=== PATIENT | female | born 1955 | race Caucasian/White ===

== ENCOUNTER 2016-07-04 07:23 | Day surgery (SDC) | payer OTHER ==
[~2016-07-04 07:23] MED LIST: ceFAZolin 2 GM/50 ML 50 ML IV ONE
[2016-07-04] MEDS ORDERED: LACTATED RINGERS 1,000 ML IV ONE (07:46)
[2016-07-04] MEDS ORDERED: PROPOFOL 200 MG/20 ML VIAL IVP ONE (08:45)
[2016-07-04] MEDS ORDERED: LIDOCAINE-PF 2% 10 ML AMP SUBQ ONE (08:45)
[2016-07-04] MEDS ORDERED: MIDAZOLAM 2 MG/2 ML VIAL IVP ONE (08:45)
[2016-07-04] MEDS ORDERED: fentaNYL 100 MCG/2 ML VIAL IVP ONE (08:45)
[2016-07-04] MEDS ORDERED: DEXAMETHASONE 4 MG/ML VIAL IVP ONE (08:45)
[2016-07-04] MEDS ORDERED: ONDANSETRON 4 MG/2 ML VIAL IVP ONE (08:45)
== END 2016-07-04 07:24 | disposition home or self-care (01) ==
PROC: 0RQR0ZZ Repair Left Carpal Joint, Open Approach (ICD-10-PCS; principal; 2016-07-04 08:30)
PROC: 01N50ZZ Release Median Nerve, Open Approach (ICD-10-PCS; 2016-07-04 08:30)
DX: M18.11 Unilateral primary osteoarthritis of first carpometacarpal joint, right hand (principal); G56.02 Carpal tunnel syndrome, left upper limb; I10 Essential (primary) hypertension; E66.9 Obesity, unspecified; Z68.39 Body mass index [BMI] 39.0-39.9, adult
CPT/HCPCS: 25447; 26480; 64721; J0690; J7120

== ENCOUNTER 2016-07-26 | Outpatient (CLI) | payer OTHER | END 2016-07-26 11:43 | disposition critical access hospital (66) | CPT/HCPCS: A0425; A0427 ==

== ENCOUNTER 2016-07-26 11:57 | Inpatient (IN) | payer OTHER ==
[2016-07-26] MEDS ORDERED: HYDROmorphone 1 MG/ML SYRINGE IVP STA ×2 (12:58→14:14)
[2016-07-26] MEDS ORDERED: ONDANSETRON 4 MG/2 ML VIAL IVP STA (12:58)
[2016-07-26] MEDS ORDERED: SODIUM CHLORIDE 0.9% 1,000 ML IV ONE (12:58)
[2016-07-26] MEDS ORDERED: KETOROLAC 60 MG/2 ML VIAL IVP STA (12:58)
[2016-07-26] MEDS ORDERED: KETOROLAC 30 MG/ML VIAL ONE (13:23)
[2016-07-26] MEDS ORDERED: HYDROmorphone 1 MG/ML SYRINGE ONE ×2 (13:23→14:21)
[2016-07-26] MEDS ORDERED: ONDANSETRON 4 MG/2 ML VIAL ONE (13:23)
[2016-07-26] MEDS ORDERED: IOPAMIDOL-300 100 ML VIAL IVP ONE (14:06)
[2016-07-26] MEDS ORDERED: cefTRIAXone 1 GM in SODIUM CHLORIDE 0.9% MINIBAG 100 ML IV STA (14:56)
[2016-07-26] MEDS ORDERED: metroNIDAZOLE 500 MG/100 ML 100 ML IV ONE (14:56)
[2016-07-26] MEDS ORDERED: cefTRIAXone 1 GM VIAL ONE (15:01)
[2016-07-26] MEDS ORDERED: metroNIDAZOLE 500 MG/100 ML 100 ML ONE (15:01)
[2016-07-26] MEDS ORDERED: LACTATED RINGERS 1,000 ML IV ONE ×3 (17:38→19:41)
[2016-07-26] MEDS ORDERED: ROCURONIUM 50 MG/5 ML VIAL IVP ONE ×2 (17:40)
[2016-07-26] MEDS ORDERED: MIDAZOLAM 2 MG/2 ML VIAL IVP ONE ×2 (17:40)
[2016-07-26] MEDS ORDERED: DEXAMETHASONE 4 MG/ML VIAL IVP ONE ×2 (17:40)
[2016-07-26] MEDS ORDERED: PROPOFOL 200 MG/20 ML VIAL IVP ONE ×2 (17:40)
[2016-07-26] MEDS ORDERED: ACETAMINOPHEN 1,000 MG/100 ML VIAL IV ONE ×2 (17:40)
[2016-07-26] MEDS ORDERED: PHENYLEPHRINE 10 MG/ML VIAL IV ONE ×2 (17:40)
[2016-07-26] MEDS ORDERED: LIDOCAINE-MPF 2% 5 ML VIAL IM ONE ×2 (17:40)
[2016-07-26] MEDS ORDERED: fentaNYL 100 MCG/2 ML VIAL IVP ONE ×2 (17:40)
[2016-07-26] MEDS ORDERED: ONDANSETRON 4 MG/2 ML VIAL IVP ONE ×2 (17:40)
[2016-07-26] MEDS ORDERED: SUCCINYLCHOLINE 200 MG/10 ML VIAL IVP ONE ×2 (17:40)
[2016-07-26] MEDS ORDERED: PIPERACILLIN/TAZOBACTAM 3.375 GM in SODIUM CHLORIDE 0.9% MINIBAG 100 ML IV ONE (18:00)
[2016-07-26] MEDS ORDERED: BUPIVACAINE 0.25% PF 30 ML VIAL SUBQ ONE (18:17)
[2016-07-26] MEDS ORDERED: PROMETHAZINE 25 MG TABLET PO PRN (18:59)
[2016-07-26] MEDS ORDERED: ONDANSETRON 4 MG/2 ML VIAL IVP PRN (18:59)
[2016-07-26] MEDS ORDERED: LACTATED RINGERS 1,000 ML IV SCH (19:00)
[2016-07-26] MEDS: ACETAMINOPHEN 500 MG TABLET PO SCH (21:00)
[2016-07-26] MEDS: KETOROLAC 30 MG/ML VIAL IVP SCH (21:00)
[2016-07-26] MEDS: SIMETHICONE CHEW 80 MG TABLET PO SCH (21:33)
[2016-07-26] MEDS: DOCUSATE SODIUM 100 MG CAPSULE PO SCH (21:33)
[2016-07-26] MEDS: LACTATED RINGERS 1,000 ML IV SCH (22:20)
[2016-07-26] MEDS ORDERED: SODIUM CHLORIDE FLUSH 0.9% 10 ML SYRINGE IVP ONE (22:21)
[2016-07-26] MEDS ORDERED: FUROSEMIDE 20 MG/2 ML VIAL IVP SCH (23:00)
[2016-07-27] MEDS: KETOROLAC 30 MG/ML VIAL IVP SCH ×4 (00:40→19:59)
[2016-07-27] MEDS: ACETAMINOPHEN 500 MG TABLET PO SCH ×3 (04:14→20:00)
[2016-07-27] MEDS: SIMETHICONE CHEW 80 MG TABLET PO SCH ×3 (07:05→21:31)
[2016-07-27] MEDS: LACTATED RINGERS 1,000 ML IV SCH (09:32)
[2016-07-27] MEDS: FUROSEMIDE 20 MG/2 ML VIAL IVP SCH (09:33)
[2016-07-27] MEDS: DOCUSATE SODIUM 100 MG CAPSULE PO SCH ×2 (09:37→21:31)
[2016-07-27] MEDS ORDERED: SODIUM CHLORIDE FLUSH 0.9% 10 ML SYRINGE IVP ONE ×2 (18:29→19:27)
[2016-07-28] MEDS: KETOROLAC 30 MG/ML VIAL IVP SCH ×3 (00:18→13:28)
[2016-07-28] MEDS: ACETAMINOPHEN 500 MG TABLET PO SCH ×2 (03:45→11:30)
[2016-07-28] MEDS: SIMETHICONE CHEW 80 MG TABLET PO SCH ×2 (06:51→15:30)
[2016-07-28] MEDS: DOCUSATE SODIUM 100 MG CAPSULE PO SCH (09:23)
[2016-07-28] MEDS: FUROSEMIDE 20 MG/2 ML VIAL IVP SCH (09:23)
[2016-07-28] MEDS ORDERED: MAG HYDROX/AL HYDROX/SIMETH 30 ML UDC PO PRN (11:35)
== END 2016-07-28 18:50 | disposition home or self-care (01) | DRG 742 ==
PROC: 0UT20ZZ Resection of Bilateral Ovaries, Open Approach (ICD-10-PCS; 2016-07-26)
PROC: 0UT70ZZ Resection of Bilateral Fallopian Tubes, Open Approach (ICD-10-PCS; principal; 2016-07-26 17:01)
DX: N83.512 Torsion of left ovary and ovarian pedicle (principal); K57.32 Diverticulitis of large intestine without perforation or abscess without bleeding; N83.202 Unspecified ovarian cyst, left side; N83.201 Unspecified ovarian cyst, right side; Z82.49 Family history of ischemic heart disease and other diseases of the circulatory system; R07.89 Other chest pain; E66.9 Obesity, unspecified; M19.90 Unspecified osteoarthritis, unspecified site; G89.29 Other chronic pain; M54.5 Low back pain

== ENCOUNTER 2016-08-15 15:48 | Outpatient (CLI) | payer OTHER | END 2016-08-15 15:49 | disposition home or self-care (01) | DX: Z48.89 Encounter for other specified surgical aftercare (principal); M19.042 Primary osteoarthritis, left hand ==

== ENCOUNTER 2017-09-11 10:56 | Day surgery (SDC) | payer OTHER ==
[~2017-09-11 10:56] MED LIST changes: +ceFAZolin 2 GM/50 ML 2 GM/50 ML BAG IV ONE; -ceFAZolin 2 GM/50 ML 50 ML IV ONE
[2017-09-11] MEDS ORDERED: LACTATED RINGERS 1,000 ML IV ONE (11:15)
[2017-09-11] MEDS ORDERED: BUPIVACAINE 0.25% PF 30 ML VIAL ONE (13:35)
[2017-09-11] MEDS ORDERED: BUPIVACAINE 0.25% PF 30 ML VIAL SUBQ ONE (14:25)
[2017-09-11] MEDS ORDERED: MIDAZOLAM 2 MG/2 ML VIAL IVP ONE (15:11)
[2017-09-11] MEDS ORDERED: PROPOFOL 200 MG/20 ML VIAL IVP ONE (15:11)
[2017-09-11] MEDS ORDERED: fentaNYL 100 MCG/2 ML VIAL IVP ONE (15:11)
[2017-09-11] MEDS ORDERED: ACETAMINOPHEN 1,000 MG/100 ML 100 ML IV ONE (15:44)
[2017-09-11 16:50] VITALS: BP 138/86
--- NOTE | 2017-09-11 20:51 | OPERATIVE REPORT ---
DATE OF SERVICE: 09/11/2017 Physician: He Mon MD PREOPERATIVE DIAGNOSES 1. Right wrist first carpometacarpal arthritis. 2. Right carpal tunnel syndrome. POSTOPERATIVE DIAGNOSES 1. Right wrist first carpometacarpal arthritis. 2. Right carpal tunnel syndrome. NAME OF PROCEDURE 1. Right wrist carpal tunnel release. 2. Right first carpometacarpal joint arthroplasty. OPERATING SURGEON: He Mon MD ANESTHESIA: General. INDICATIONS FOR PROCEDURE: This is a 61-year-old female with progressive right first carpometacarpal arthritis and associated carpal tunnel syndrome of her hand. She desires combined surgery and has failed nonoperative treatment. FINDINGS AT SURGERY: The patient's carpometacarpal joint was severely arthritic and there were small loose bodies in that joint. The patient's carpal tunnel area was unremarkable with a tight transverse carpal ligament. OPERATIVE PROCEDURE: The patient was taken to the operating room and given a general anesthetic. The patient had had a preoperative right axillary nerve block. A tourniquet was placed on the arm and the arm and forearm sterilely prepped and draped in standard fashion. After surgical timeout, the initial procedure was the carpal tunnel release. Utilizing tourniquet control of 250 mmHg, a midline incision was made in the palm in line with the third webspace, measuring 1-1/2 inches in length. This incision was deepened through skin and a careful dissection made down to the transverse carpal ligament, which was divided in line with the incision. The release was carried to the distal extent at the superficial arch of the palm and taken proximal to the wrist flexion crease. Once adequately decompressed, the area was irrigated and skin closed with 3-0 nylon interrupted. The attention was then directed to the base of the thumb where a curved incision was made over the base of the thumb, taken through skin and subcutaneous tissue, and dissecting down to the first extensor compartment and to the tissues adjacent to the dorsal thumb. The extensor tendons and the first compartment were retracted volarly, and further dissection was taken directly down to the base of the first metacarpal. A capsulotomy was performed of the carpometacarpal joint, reflecting tissue off the trapezial bone and the base of the first metacarpal. The trapezium was sectioned and removed in 4 pieces, and small bits of bone were flushed out and irrigated. A drill hole was made in the base of the first metacarpal to exit the base of that bone for receiving a tendon graft as a ligament reconstruction. The thumb was positioned appropriately with some distraction and a K-wire driven into the carpus to hold it. The flexor carpi radialis distal tendon was divided and whipstitched and drawn up into the drill hole and sutured into place. The capsule was then closed after tourniquet deflation and bleeding control and then the subcutaneous tissues closed with Vicryl. The pin was bent and cut, and a Jurgan ball was placed on the end of the pin and the patient's wounds infiltrated with Marcaine again. Sterile dressings were applied to each of the wounds and the patient was fitted in a thumb spica splint. She was taken to the recovery room in stable condition. ESTIMATED BLOOD LOSS FOR THE PROCEDURE: Minimal. COMPLICATIONS: None. SPONGE AND NEEDLE COUNTS: Correct. TD: 09/11/2017 20:50
== END 2017-09-11 10:57 | disposition home or self-care (01) ==
LOC: SDS 10:56
PROVIDERS: ATTEND Orthopaedic Surgery
PROC: 0RQS0ZZ Repair Right Carpometacarpal Joint, Open Approach (ICD-10-PCS; 2017-09-11)
PROC: 01N50ZZ Release Median Nerve, Open Approach (ICD-10-PCS; principal; 2017-09-11 12:45)
DX: M18.11 Unilateral primary osteoarthritis of first carpometacarpal joint, right hand (principal); G56.01 Carpal tunnel syndrome, right upper limb; I10 Essential (primary) hypertension; E78.00 Pure hypercholesterolemia, unspecified
CPT/HCPCS: 25447; 26480; 64721; J0131; J0690; J7120

== ENCOUNTER 2018-01-11 07:10 | Outpatient (CLI) | payer OTHER ==
[2018-01-11 12:35] LABS: BASOPHILS # (AUTO) 0.1 10^3/uL (0.0-0.1); EOSINOPHILS # (AUTO) 0.3 10^3/uL (0.0-0.7); EOSINOPHILS % (AUTO) 3.6 %; HGB - HEMOGLOBIN 15.7 g/dL (12.0-16.0); LYMPHOCYTES # (AUTO) 3.5 10^3/uL (1.5-3.5); LYMPHOCYTES % (AUTO) 45.5 %; MEAN CORPUSCULAR HEMOGLOBIN 32.5 pg (27.0-31.0); MEAN CORPUSCULAR VOLUME 95.6 fL (81.0-99.0); MEAN PLATELET VOLUME 7.8 fL (7.9-10.8); MONOCYTES # (AUTO) 0.7 10^3/uL (0.0-1.0); MONOCYTES % (AUTO) 9.5 %; NEUTROPHILS # (AUTO) 3.1 10^3/uL (1.5-6.6); NEUTROPHILS % (AUTO) 40.4 %; PLT - PLATELET COUNT 200 10^3/uL (130-450); RED BLOOD COUNT 4.84 10^6/uL (4.20-5.40); RED CELL DISTRIBUTION WIDTH 13.2 % (12.0-15.0); WHITE BLOOD COUNT 7.7 x10^3/uL (4.8-10.8)
[2018-01-11 13:00] LABS: HB2 TOTAL 16.8 g/dL; HEMOGLOBIN A1C 0.72 g/dL; HEMOGLOBIN A1C % 6.1 % (4.6-6.2)
[2018-01-11 13:28] LABS: ALBUMIN/GLOBULIN RATIO 1.3 (1.0-2.2); ALKALINE PHOSPHATASE 68 IU/L (42-121); ALT ALANINE AMINOTRANSFERASE 95 IU/L (10-60); AST ASPARTATE AMINOTRANSFERASE 60 IU/L (10-42); BILIRUBIN,TOTAL 0.7 mg/dL (0.2-1.0); BUN - BLOOD UREA NITROGEN 11 mg/dL (6-20); CALCIUM 9.9 mg/dL (8.5-10.3); CARBON DIOXIDE - CO2 28 mmol/L (21-32); CHLORIDE 103 mmol/L (101-111); CHOL/HDL RATIO 5.2 (<4.4); CHOLESTEROL 209 mg/dL; CREATININE 0.7 mg/dL (0.4-1.0); GFR - MDRD 85 (>89); GLUCOSE 123 mg/dL (70-100); HDL CHOLESTEROL 40 mg/dL; LDL CHOLESTEROL,CALCULATED 132 mg/dL; LDL/HDL RATIO 3.3 (<4.4); SODIUM 138 mmol/L (135-145); TOTAL PROTEIN 7.1 g/dL (6.7-8.2); VLDL CHOLESTEROL 37 mg/dL
== END 2018-01-11 07:11 | disposition home or self-care (01) ==
LOC: LAB.WCP 07:10
PROVIDERS: ATTEND Family Medicine
DX: Z00.00 Encounter for general adult medical examination without abnormal findings (principal); I10 Essential (primary) hypertension; R73.9 Hyperglycemia, unspecified
CPT/HCPCS: 36415; 80053; 80061; 83036; 83721; 84443; 85025

== ENCOUNTER 2018-01-16 10:56 | Emergency (ER) | payer OTHER ==
[2018-01-16 11:24] LABS: BASOPHILS # (AUTO) 0.1 10^3/uL (0.0-0.1); EOSINOPHILS # (AUTO) 0.3 10^3/uL (0.0-0.7); EOSINOPHILS % (AUTO) 3.1 %; HGB - HEMOGLOBIN 16.7 g/dL (12.0-16.0); LYMPHOCYTES # (AUTO) 4.5 10^3/uL (1.5-3.5); LYMPHOCYTES % (AUTO) 47.4 %; MEAN CORPUSCULAR HEMOGLOBIN 32.7 pg (27.0-31.0); MEAN CORPUSCULAR HGB CONC 34.8 g/dL (32.0-36.0); MEAN CORPUSCULAR VOLUME 93.9 fL (81.0-99.0); MEAN PLATELET VOLUME 7.3 fL (7.9-10.8); MONOCYTES % (AUTO) 10.7 %; NEUTROPHILS # (AUTO) 3.6 10^3/uL (1.5-6.6); NEUTROPHILS % (AUTO) 37.8 %; PLT - PLATELET COUNT 197 10^3/uL (130-450); RED CELL DISTRIBUTION WIDTH 12.7 % (12.0-15.0); WHITE BLOOD COUNT 9.4 x10^3/uL (4.8-10.8)
[2018-01-16 11:43] LABS: ALBUMIN 4.3 g/dL (3.2-5.5); ALBUMIN/GLOBULIN RATIO 1.3 (1.0-2.2); BILIRUBIN,TOTAL 0.9 mg/dL (0.2-1.0); CALCIUM 10.7 mg/dL (8.5-10.3); CREATININE 0.7 mg/dL (0.4-1.0); TOTAL PROTEIN 7.5 g/dL (6.7-8.2)
--- NOTE | 2018-01-16 12:23 | XRAY Report ---
Procedure Date: 01/16/2018 Accession Number: [id number] / [id number] Procedure: XR - Chest 2 View X-Ray CPT Code: 79011 FULL RESULT: EXAM: CHEST RADIOGRAPHY EXAM DATE: 01/16/2018 11:43 AM. CLINICAL HISTORY: Chest pain, soa. COMPARISON: 07/28/2016 TECHNIQUE: 2 views. FINDINGS: Lungs/Pleura: No focal opacities evident. No pleural effusion. No pneumothorax. Normal volumes. Mediastinum: Heart and mediastinal contours are unremarkable. Other: Negative bony structures. IMPRESSION: Negative 2-view chest radiography. RADIA
--- NOTE | 2018-01-16 13:18 | ED Physician Documentation ---
PD HPI CHEST PAIN - Stated complaint Stated Complaint: SOA/ANXIETY/CHEST PX - Chief complaint Chief Complaint: Cardiac - History obtained from History obtained from: Patient - History of Present Illness Timing - onset: How many days ago (few) Timing - onset during: Light activity Timing - duration: Days (few) Timing - details: Gradual onset, Still present, Waxing and waning Quality: Pressure, Tightness. No: Aching, Sharp Location: Substernal, Left chest Radiation: No: Jaw, Neck Improved by: Rest Associated symptoms: Shortness of air. No: Nausea, Vomiting, Feeling faint / dizzy, Palpitations Similar symptoms before: Has not had sx before Recently seen: Not recently seen Review of Systems Constitutional: denies: Fever, Chills Nose: reports: Congestion. denies: Rhinorrhea / runny nose Throat: denies: Sore throat Cardiac: reports: Chest pain / pressure. denies: Palpitations Respiratory: reports: Dyspnea, Wheezing GI: denies: Abdominal Pain, Nausea, Vomiting : denies: Dysuria, Frequency, Discharge Skin: denies: Rash PD PAST MEDICAL HISTORY - Past Medical History Past Medical History: Yes Cardiovascular: Hypertension, High cholesterol Respiratory: Shortness of breath, Sleep apnea Endocrine/Autoimmune: None GI: Hiatal hernia : Frequency HEENT: Chronic vision loss, Chronic sinusitis Psych: Depression, Anxiety Musculoskeletal: Osteoarthritis, Chronic back pain Derm: Psoriasis - Past Surgical History General: Colonoscopy, Other Ortho: Carpal Tunnel surgery /[employer]: Tubal ligation, Oophrectomy - Present Medications Home Medications: Ambulatory Orders Medication Instructions Recorded Confirmed Adalimumab [Humira] 10 mg SQ ONCE 09/10/17 09/10/17 Lisinopril/Hydrochlorothiazide 1 each PO DAILY 09/10/17 09/11/17 [Lisinopril-Hctz 10-12.5 mg Tab] Albuterol Sulf [Ventolin Hfa 2 - 3 puffs INH Q4HR PRN #1 inhaler 01/16/18 Inhaler] Dexamethasone [Decadron] 4 mg PO DAILY #5 tablet 01/16/18 - Allergies Allergies/Adverse Reactions: Allergies Allergy/AdvReac Type Severity Reaction Status Date / Time No Known Drug Allergies Allergy Verified 01/16/18 11:07 - Social History Does the pt smoke?: No Smoking Status: Never smoker Does the pt drink ETOH?: No Does the pt have substance abuse?: No - Immunizations Immunizations are current?: Yes PD ED PE NORMAL - Vitals Vital signs reviewed: Yes - General General: Alert and oriented X 3, No acute distress, Well developed/nourished - HEENT HEENT: Ears normal, Pharynx benign - Neck Neck: Supple, no meningeal sign, No adenopathy - Cardiac Cardiac: RRR, No murmur - Respiratory Respiratory: No: Clear bilaterally (expiratory wheezes diffusely. ) - Abdomen Abdomen: Normal bowel sounds, Soft, Non tender, Non distended - Back Back: No CVA TTP - Extremities Extremities: No deformity - Neuro Neuro: Alert and oriented X 3, No motor deficit, Normal speech - Psych Psych: Normal mood, Normal affect Results - Vitals Vitals: Vital Signs - 24 hr 01/16/18 01/16/18 01/16/18 11:05 13:25 13:55 Temperature 36.8 C Heart Rate 76 75 76 Respiratory 16 14 12 Rate Blood Pressure 138/94 H O2 Saturation 99 97 01/16/18 14:05 Temperature Heart Rate 79 Respiratory 13 Rate Blood Pressure 131/89 H O2 Saturation 97 Oxygen O2 Source Room air - EKG (time done) 11:09 Rate: Rate (enter#) (78) Rhythm: NSR [place]: Normal Intervals: Normal MI QRS: Normal Ischemia: Normal ST segments. No: ST elevation c/w ischemia, ST depression, T wave inversion (but does have t wave flattening. ) - Labs Labs: Laboratory Tests 01/16/18 01/16/18 01/16/18 11:18 11:18 11:18 WBC 9.4 RBC 5.10 Hgb 16.7 H Hct 47.9 H MCV 93.9 MCH 32.7 H MCHC 34.8 RDW 12.7 Plt Count 197 MPV 7.3 L Neut # (Auto) 3.6 Lymph # (Auto) 4.5 H [place] # (Auto) 1.0 Eos # (Auto) 0.3 Baso # (Auto) 0.1 Absolute Nucleated RBC 0.00 Nucleated RBC % 0.0 Sodium 138 Potassium 3.8 Chloride 102 Carbon Dioxide 28 Anion Gap 8.0 BUN 15 Creatinine 0.7 Estimated GFR (MDRD) 85 L Glucose 98 Calcium 10.7 H Magnesium Total Bilirubin 0.9 AST 87 H ALT 127 H Alkaline Phosphatase 82 Troponin I < 0.04 B-Natriuretic Peptide Total Protein 7.5 Albumin 4.3 Globulin 3.2 Albumin/Globulin Ratio 1.3 Lipase 33 01/16/18 01/16/18 11:18 11:18 WBC RBC Hgb Hct MCV MCH MCHC RDW Plt Count MPV Neut # (Auto) Lymph # (Auto) [place] # (Auto) Eos # (Auto) Baso # (Auto) Absolute Nucleated RBC Nucleated RBC % Sodium Potassium Chloride Carbon Dioxide Anion Gap BUN Creatinine Estimated GFR (MDRD) Glucose Calcium Magnesium 2.0 Total Bilirubin AST ALT Alkaline Phosphatase Troponin I B-Natriuretic Peptide 16 Total Protein Albumin Globulin Albumin/Globulin Ratio Lipase - Rads (name of study) chest Radiology: Prelim report reviewed (no acute process) PD MEDICAL DECISION MAKING - ED course Complexity details: reviewed results, re-evaluated patient (feels much much better with albuterol neb treatment. ), considered differential, d/w patient - Sepsis Event Vital Signs: Vital Signs - 24 hr 01/16/18 01/16/18 01/16/18 11:05 13:25 13:55 Temperature 36.8 C Heart Rate 76 75 76 Respiratory 16 14 12 Rate Blood Pressure 138/94 H O2 Saturation 99 97 01/16/18 14:05 Temperature Heart Rate 79 Respiratory 13 Rate Blood Pressure 131/89 H O2 Saturation 97 Oxygen O2 Source Room air Departure - Departure Disposition: 01 Home, Self Care Clinical Impression: Dyspnea Qualifiers: Dyspnea type: shortness of breath Qualified Code(s): R06.02 - Shortness of breath Reactive airway disease with wheezing Qualifiers: Asthma severity: mild Asthma persistence: intermittent Asthma complication type : with acute exacerbation Qualified Code(s): J45.21 - Mild intermittent asthma with (acute) exacerbation Condition: Stable Record reviewed to determine appropriate education?: Yes Instructions: ED Dyspnea Shortness of Breath Follow-Up: Mariana Burkett MD [Primary Care Provider] - Prescriptions: Albuterol Sulf [Ventolin Hfa Inhaler] 2 - 3 puffs INH Q4HR PRN #1 inhaler PRN Reason: Shortness Of Air/Wheezing Dexamethasone [Decadron] 4 mg PO DAILY #5 tablet Comments: Continue usual medications. Your chest x-ray and cardiogram and blood tests look normal so no signs of pneumonia, heart attack, or heart failure, collapsed lung. He did have improvement with the nebulizer so 1 presumes that some reactive airways related to environment most likely. Use the inhaler albuterol 2-3 puffs 4 times a day and extra times if needed for the next 7-10 days. Decadron steroid for bronchial inflammation daily for the next 5 days. Follow- up with your primary care in the next several days to week for recheck, call for an appointment. Discharge Date/Time: 01/16/18 14:39
[2018-01-16] MEDS ORDERED: DEXAMETHASONE 10 MG/ML VIAL PO STA (13:35)
[2018-01-16] MEDS ORDERED: ALBUTEROL NEB 2.5 MG/3 ML INH STA (13:35)
[2018-01-16 14:06] VITALS: BP 131/89
== END 2018-01-16 14:39 | disposition home or self-care (01) ==
LOC: ED 10:56
DX: J45.21 Mild intermittent asthma with (acute) exacerbation (principal)
CPT/HCPCS: 36415; 71046; 80053; 83690; 83735; 83880; 84484; 85025; 93005; 94640; 99283; 99284

== ENCOUNTER 2018-02-04 15:14 | Outpatient (CLI) | payer OTHER ==
--- NOTE | 2018-02-19 10:24 | Mammography Report ---
Reason: SCREENING MAMMO Procedure Date: 02/04/2018 Accession Number: [id number] / [id number] Procedure: JONATHAN - Screening Mammo Dig Bilat CPT Code: FULL RESULT: EXAM: Screening Mammo Dig Bilat DATE: 02/04/2018 3:33 PM CLINICAL HISTORY: 62-year-old female presents for screening mammogram. TECHNIQUE: Bilateral CC and MLO views were obtained. COMPARISON: No comparison studies are available to the radiologist for interpretation as supplied outside comparison images could not be loaded into the viewing software. FINDINGS: The breasts demonstrate scattered fibroglandular densities bilaterally. Coarse typically benign calcifications are seen in the right breast. No suspicious masses, clustered microcalcifications, or regions of architectural distortion are identified. IMPRESSION: Benign findings RECOMMENDATION: Routine annual screening unless otherwise clinically indicated. BIRADS CATEGORY 2: Benign findings STANDARD QUALIFYING STATEMENTS: 1. This examination was not reviewed with the aid of Computer-Aided Detection (CAD). 2. A negative or benign imaging report should not delay biopsy if clinically suspicious findings are present. Consider surgical consultation if warrented. More than 5% of cancers are not identified by imaging. 3. Dense breasts may obscure an underlying neoplasm.
== END 2018-02-04 15:15 | disposition home or self-care (01) ==
LOC: DI 15:14
PROVIDERS: ATTEND Radiology Diagnostic Radiology
DX: Z12.31 Encounter for screening mammogram for malignant neoplasm of breast (principal)
CPT/HCPCS: 77067

== ENCOUNTER 2018-02-14 13:03 | Outpatient (CLI) | payer OTHER | END 2018-02-14 13:04 | disposition home or self-care (01) | LOC: SC 13:03 | PROVIDERS: ATTEND Internal Medicine Pulmonary Disease | DX: G47.30 Sleep apnea, unspecified (principal); G47.10 Hypersomnia, unspecified; R06.83 Snoring; G47.8 Other sleep disorders | CPT/HCPCS: 99203; 99212 ==

== ENCOUNTER 2018-03-27 20:37 | Outpatient (CLI) | payer OTHER | END 2018-03-27 20:38 | disposition home or self-care (01) | LOC: SC 20:37 | PROVIDERS: ATTEND Internal Medicine Pulmonary Disease | DX: G47.33 Obstructive sleep apnea (adult) (pediatric) (principal); R09.02 Hypoxemia | CPT/HCPCS: 95810 ==

== ENCOUNTER 2018-04-24 14:20 | Outpatient (CLI) | payer OTHER | END 2018-04-24 14:21 | disposition home or self-care (01) | LOC: SC 14:20 | PROVIDERS: ATTEND Nurse Practitioner Family | DX: G47.33 Obstructive sleep apnea (adult) (pediatric) (principal); R09.02 Hypoxemia | CPT/HCPCS: 99212; 99214 ==

== ENCOUNTER 2018-06-03 16:17 | Outpatient (CLI) | payer OTHER | END 2018-06-03 16:18 | disposition home or self-care (01) | LOC: SC 16:17 | PROVIDERS: ATTEND Nurse Practitioner Family | DX: G47.33 Obstructive sleep apnea (adult) (pediatric) (principal) | CPT/HCPCS: 99212; 99214 ==

== ENCOUNTER 2018-09-02 16:13 | Outpatient (CLI) | payer OTHER | END 2018-09-02 16:14 | disposition home or self-care (01) | LOC: SC 16:13 | PROVIDERS: ATTEND Nurse Practitioner Family | DX: G47.33 Obstructive sleep apnea (adult) (pediatric) (principal) | CPT/HCPCS: 99212; 99214 ==

== ENCOUNTER 2018-09-18 08:49 | Outpatient (CLI) | payer OTHER ==
[2018-09-18 15:48] LABS: ALBUMIN 3.9 g/dL (3.2-5.5); ALBUMIN/GLOBULIN RATIO 1.1 (1.0-2.2); BILIRUBIN,TOTAL 0.8 mg/dL (0.2-1.0); CALCIUM 10.2 mg/dL (8.5-10.3); CREATININE 0.7 mg/dL (0.4-1.0); TOTAL PROTEIN 7.4 g/dL (6.7-8.2)
== END 2018-09-18 08:50 | disposition home or self-care (01) ==
LOC: LAB.WCP 08:49
PROVIDERS: ATTEND Family Medicine
DX: R74.8 Abnormal levels of other serum enzymes (principal)
CPT/HCPCS: 36415; 80053

== ENCOUNTER 2018-10-10 07:25 | Outpatient (CLI) | payer OTHER ==
--- NOTE | 2018-10-10 13:12 | Ultrasound Report ---
Reason: ELEVATED LIVER ENZYMES Procedure Date: 10/10/2018 Accession Number: [id number] / [id number] Procedure: US - Abdomen Complete CPT Code: FULL RESULT: EXAM: ABDOMEN ULTRASOUND EXAM DATE: 10/10/2018 08:18 AM. CLINICAL HISTORY: Elevated liver enzymes. COMPARISON: ABDOMEN/PELVIS W/ 07/26/2016 1:57 PM. TECHNIQUE: Real-time scanning was performed with static images obtained. FINDINGS: Liver: Liver is upper normal in size. Evaluation of the liver parenchyma is moderately limited due to poor beam penetration. 17 cm. Main portal vein flow: Hepatopetal. Gallbladder: There is a 1 cm mobile stone and dependent nonshadowing sludge. No wall thickening, pericholecystic fluid or tenderness to imaging. Biliary System: Common bile duct measures 3 mm. No intrahepatic or extrahepatic ductal dilatation. Pancreas: Visualized portion is unremarkable. Kidneys: Right: 10.7 cm longitudinally. Limited fine detail. No contour-deforming mass, stones, or hydronephrosis. Left: 11.3 cm longitudinally. Normal. No contour-deforming mass, stones, or hydronephrosis. Spleen: 11 cm. Normal in size and echotexture. Aorta and Inferior Vena Cava: Proximal aorta is obscured. Mid and distal aorta are normal in caliber. IVC appears normal. Other: None. IMPRESSION: 1. Technically limited exam, particularly regarding evaluation of liver parenchyma. 2. Cholelithiasis without other supportive evidence of cholecystitis. [facility]
== END 2018-10-10 07:26 | disposition home or self-care (01) ==
LOC: DI 07:25
PROVIDERS: ATTEND Family Medicine
DX: K80.20 Calculus of gallbladder without cholecystitis without obstruction (principal)
CPT/HCPCS: 76700

== ENCOUNTER 2019-01-02 08:00 | Outpatient (CLI) | payer OTHER ==
[2019-01-02 12:27] LABS: BASOPHILS # (AUTO) 0.1 10^3/uL (0.0-0.1); EOSINOPHILS # (AUTO) 0.4 10^3/uL (0.0-0.7); EOSINOPHILS % (AUTO) 4.8 %; HGB - HEMOGLOBIN 16.8 g/dL (12.0-16.0); LYMPHOCYTES # (AUTO) 2.9 10^3/uL (1.5-3.5); LYMPHOCYTES % (AUTO) 34.9 %; MEAN CORPUSCULAR HEMOGLOBIN 31.8 pg (27.0-31.0); MEAN CORPUSCULAR HGB CONC 32.5 g/dL (32.0-36.0); MEAN CORPUSCULAR VOLUME 97.7 fL (81.0-99.0); MONOCYTES # (AUTO) 0.7 10^3/uL (0.0-1.0); MONOCYTES % (AUTO) 8.4 %; NEUTROPHILS # (AUTO) 4.2 10^3/uL (1.5-6.6); NEUTROPHILS % (AUTO) 50.4 %; PLT - PLATELET COUNT 226 10^3/uL (130-450); RED BLOOD COUNT 5.29 10^6/uL (4.20-5.40); RED CELL DISTRIBUTION WIDTH 13.2 % (12.0-15.0); WHITE BLOOD COUNT 8.3 x10^3/uL (4.8-10.8)
[2019-01-02 12:54] LABS: ALBUMIN 4.1 g/dL (3.2-5.5); ALBUMIN/GLOBULIN RATIO 1.1 (1.0-2.2); ALKALINE PHOSPHATASE 79 IU/L (42-121); ALT ALANINE AMINOTRANSFERASE 84 IU/L (10-60); AST ASPARTATE AMINOTRANSFERASE 67 IU/L (10-42); BILIRUBIN,TOTAL 0.7 mg/dL (0.2-1.0); BUN - BLOOD UREA NITROGEN 13 mg/dL (6-20); CALCIUM 10.3 mg/dL (8.5-10.3); CARBON DIOXIDE - CO2 28 mmol/L (21-32); CHLORIDE 103 mmol/L (101-111); CHOL/HDL RATIO 5.7 (<4.4); CHOLESTEROL 226 mg/dL; CREATININE 0.7 mg/dL (0.4-1.0); GFR - MDRD 85 (>89); GLUCOSE 117 mg/dL (70-100); HDL CHOLESTEROL 40 mg/dL; LDL CHOLESTEROL,CALCULATED 150 mg/dL; LDL/HDL RATIO 3.8 (<4.4); SODIUM 141 mmol/L (135-145); VLDL CHOLESTEROL 36 mg/dL
[2019-01-02 13:05] LABS: HB2 TOTAL 17.7 g/dL; HEMOGLOBIN A1C 0.75 g/dL
== END 2019-01-02 23:59 | disposition home or self-care (01) ==
LOC: LAB.WCP 08:00
PROVIDERS: ATTEND Family Medicine
DX: Z00.00 Encounter for general adult medical examination without abnormal findings (principal); E78.5 Hyperlipidemia, unspecified; I10 Essential (primary) hypertension; R73.9 Hyperglycemia, unspecified; F32.9 Major depressive disorder, single episode, unspecified
CPT/HCPCS: 36415; 80053; 80061; 83036; 83721; 84443; 85025

== ENCOUNTER 2019-06-10 09:35 | Outpatient (CLI) | payer MEDICAID ==
--- NOTE | 2019-06-11 09:04 | Mammography Report ---
Reason: ROUTINE MAMMO Procedure Date: 06/10/2019 Accession Number: [id number] / [id number] Procedure: MGN - Screening Mammo Dig Bilat CPT Code: Final Report FULL RESULT: EXAM: Screening Mammo Dig Bilat DATE: 06/10/2019 10:00 AM CLINICAL HISTORY: Screening encounter. TECHNIQUE: (B) - Bilateral CC, laterally exaggerated CC, MLO views were obtained. COMPARISON: 02/04/2018. PARENCHYMAL PATTERN: (A) - The breast(s) demonstrate(s) scattered fibroglandular densities. FINDINGS: There are no suspicious masses, calcifications, or areas of distortion. IMPRESSION: Negative examination. BI-RADS category 1. RECOMMENDATION: (ANNUAL) - Recommend routine annual screening mammography. BI-RADS CATEGORY: (1) - Negative. STANDARD QUALIFYING STATEMENTS: 1. This examination was not reviewed with the aid of Computer-Aided Detection (CAD). 2. A negative or benign imaging report should not preclude biopsy if clinically suspicious findings are present. 3. Dense breasts may obscure an underlying neoplasm. 4. This examination was reviewed without the aid of 3D breast imaging (tomosynthesis).
== END 2019-06-10 09:36 | disposition home or self-care (01) ==
LOC: DI.N 09:35
DX: Z12.31 Encounter for screening mammogram for malignant neoplasm of breast (principal)
CPT/HCPCS: 77067

== ENCOUNTER 2019-06-30 08:00 | Outpatient (CLI) | payer MEDICAID ==
[2019-06-30 12:58] LABS: ALBUMIN 4.1 g/dL (3.2-5.5); ALBUMIN/GLOBULIN RATIO 1.2 (1.0-2.2); ALKALINE PHOSPHATASE 68 IU/L (42-121); ALT ALANINE AMINOTRANSFERASE 33 IU/L (10-60); AST ASPARTATE AMINOTRANSFERASE 29 IU/L (10-42); BILIRUBIN,TOTAL 0.8 mg/dL (0.2-1.0); BUN - BLOOD UREA NITROGEN 13 mg/dL (6-20); CALCIUM 10.4 mg/dL (8.5-10.3); CARBON DIOXIDE - CO2 29 mmol/L (21-32); CHLORIDE 103 mmol/L (101-111); CHOLESTEROL 224 mg/dL; CREATININE 0.8 mg/dL (0.4-1.0); GFR - MDRD 73 (>89); GLUCOSE 110 mg/dL (70-100); HDL CHOLESTEROL 45 mg/dL; LDL CHOLESTEROL,CALCULATED 151 mg/dL; LDL/HDL RATIO 3.4 (<4.4); SODIUM 141 mmol/L (135-145); TOTAL PROTEIN 7.5 g/dL (6.7-8.2); VLDL CHOLESTEROL 28 mg/dL
[2019-06-30 13:03] LABS: HB2 TOTAL 16.4 g/dL; HEMOGLOBIN A1C 0.66 g/dL; HEMOGLOBIN A1C % 5.8 % (4.6-6.2)
== END 2019-06-30 23:59 | disposition home or self-care (01) ==
LOC: LAB.WCP 08:00
PROVIDERS: ATTEND Physician Assistant Medical
DX: E78.5 Hyperlipidemia, unspecified (principal); R73.9 Hyperglycemia, unspecified
CPT/HCPCS: 36415; 80053; 80061; 83036; 83721

== ENCOUNTER 2019-07-10 09:58 | Outpatient (CLI) | payer MEDICAID ==
--- NOTE | 2019-07-10 19:07 | XRAY Report ---
Reason: HIP PAIN BILATERAL Procedure Date: 07/10/2019 Accession Number: [id number] / [id number] Procedure: WCP - Hip BILAT CPT Code: Final Report FULL RESULT: EXAM: BILATERAL HIP RADIOGRAPHY EXAM DATE: 07/10/2019 12:21 PM. CLINICAL HISTORY: HIP PAIN BILATERAL. COMPARISON: HIP BILAT 07/19/2017 9:58 AM. TECHNIQUE: 2 views each. FINDINGS: Bones: Normal mineralization. No fracture or focal bony lesion. Right Hip: No dislocation. There is mild joint space narrowing. There is mild remodeling of the femoral head with convexity at the superior femoral head-neck junction. Left Hip: No dislocation. There is mild joint space narrowing and marginal osteophyte formation. Soft Tissues: Normal. No soft tissue swelling. IMPRESSION: 1. No fracture or dislocation. 2. There is mild to moderate bilateral hip degenerative disease, not significantly changed as compared to the previous examination. RADIA
== END 2019-07-10 23:59 | disposition home or self-care (01) ==
LOC: DI.WCP 09:58
PROVIDERS: ATTEND Physician Assistant Medical
DX: M16.0 Bilateral primary osteoarthritis of hip (principal)
CPT/HCPCS: 73521

== ENCOUNTER 2020-02-04 08:32 | Outpatient (CLI) | payer MEDICAID ==
[2020-02-04 12:18] LABS: BASOPHILS # (AUTO) 0.1 10^3/uL (0.0-0.1); EOSINOPHILS # (AUTO) 0.4 10^3/uL (0.0-0.7); EOSINOPHILS % (AUTO) 5.2 %; HGB - HEMOGLOBIN 16.6 g/dL (12.0-16.0); LYMPHOCYTES # (AUTO) 2.6 10^3/uL (1.5-3.5); LYMPHOCYTES % (AUTO) 36.9 %; MEAN CORPUSCULAR HEMOGLOBIN 31.9 pg (27.0-31.0); MEAN CORPUSCULAR HGB CONC 33.5 g/dL (32.0-36.0); MEAN CORPUSCULAR VOLUME 95.2 fL (81.0-99.0); MEAN PLATELET VOLUME 9.7 fL (7.9-10.8); MONOCYTES # (AUTO) 0.7 10^3/uL (0.0-1.0); MONOCYTES % (AUTO) 10.2 %; NEUTROPHILS # (AUTO) 3.3 10^3/uL (1.5-6.6); NEUTROPHILS % (AUTO) 46.6 %; PLT - PLATELET COUNT 216 10^3/uL (130-450); RED BLOOD COUNT 5.21 10^6/uL (4.20-5.40); WHITE BLOOD COUNT 7.1 x10^3/uL (4.8-10.8)
[2020-02-04 12:40] LABS: ALBUMIN 4.1 g/dL (3.2-5.5); ALBUMIN/GLOBULIN RATIO 1.2 (1.0-2.2); ALKALINE PHOSPHATASE 77 IU/L (42-121); ALT ALANINE AMINOTRANSFERASE 43 IU/L (10-60); AST ASPARTATE AMINOTRANSFERASE 36 IU/L (10-42); BILIRUBIN,TOTAL 1.1 mg/dL (0.2-1.0); BUN - BLOOD UREA NITROGEN 14 mg/dL (6-20); CALCIUM 10.3 mg/dL (8.5-10.3); CARBON DIOXIDE - CO2 27 mmol/L (21-32); CHLORIDE 102 mmol/L (101-111); CHOL/HDL RATIO 6.2 (<4.4); CHOLESTEROL 249 mg/dL; CREATININE 0.7 mg/dL (0.4-1.0); GLUCOSE 118 mg/dL (70-100); HDL CHOLESTEROL 40 mg/dL; LDL CHOLESTEROL,CALCULATED 169 mg/dL; LDL/HDL RATIO 4.2 (<4.4); SODIUM 137 mmol/L (135-145); TOTAL PROTEIN 7.6 g/dL (6.7-8.2); VLDL CHOLESTEROL 40 mg/dL
[2020-02-04 12:49] LABS: HEMOGLOBIN A1c% 5.8 % (4.27-6.07)
== END 2020-02-04 23:59 | disposition home or self-care (01) ==
LOC: LAB.WCP 08:32
PROVIDERS: ATTEND Physician Assistant Medical
DX: R73.9 Hyperglycemia, unspecified (principal); E78.5 Hyperlipidemia, unspecified
CPT/HCPCS: 36415; 80053; 80061; 83036; 83721; 84443; 85025

== ENCOUNTER 2021-07-13 10:19 | Outpatient (CLI) | payer OTHER ==
--- NOTE | 2021-07-13 12:02 | XRAY Report ---
PROCEDURE: Knee 3 View BILAT INDICATIONS: BILATERAL KNEE PX TECHNIQUE: 3 views of the bilateral knee(s) were acquired. COMPARISON: None. FINDINGS: Bones: No fractures or dislocations. No suspicious bony lesions. [id number] bilateral medial femoral tibial compartment osteoarthritic changes are seen. No patella subluxation. Soft tissues: Small to moderate right suprapatellar joint effusion is seen. No suspicious soft tissue calcifications. IMPRESSION: Mild to moderate bilateral medial femoral tibial compartment osteoarthritis. No fracture or dislocation. Small to moderate right suprapatellar joint effusion. Reviewed by: Rajeev Martin MD on 07/13/2021 12:01 PM PST Approved by: Rajeev Martin MD on 07/13/2021 12:01 PM PST Station ID: [id number]
== END 2021-07-13 10:20 | disposition home or self-care (01) ==
LOC: DI.N 10:19
PROVIDERS: ATTEND Physician Assistant Medical
DX: M17.0 Bilateral primary osteoarthritis of knee (principal); M25.461 Effusion, right knee; E78.5 Hyperlipidemia, unspecified; I10 Essential (primary) hypertension; R73.9 Hyperglycemia, unspecified
CPT/HCPCS: 36415; 80053; 80061; 83036; 83721; 84443; 85025

== ENCOUNTER 2021-07-13 10:25 | Outpatient (CLI) | payer OTHER ==
[2021-07-13 12:27] LABS: BASOPHILS # (AUTO) 0.1 10^3/uL (0.0-0.1); BASOPHILS % (AUTO) 0.7 %; EOSINOPHILS # (AUTO) 0.3 10^3/uL (0.0-0.7); EOSINOPHILS % (AUTO) 4.3 %; HCT - HEMATOCRIT 47.1 % (37.0-47.0); HGB - HEMOGLOBIN 15.9 g/dL (12.0-16.0); LYMPHOCYTES % (AUTO) 30.1 %; MEAN CORPUSCULAR HEMOGLOBIN 32.1 pg (27.0-31.0); MEAN CORPUSCULAR HGB CONC 33.8 g/dL (32.0-36.0); MEAN PLATELET VOLUME 10.1 fL (7.9-10.8); MONOCYTES # (AUTO) 0.6 10^3/uL (0.0-1.0); MONOCYTES % (AUTO) 8.7 %; NEUTROPHILS # (AUTO) 3.8 10^3/uL (1.5-6.6); NEUTROPHILS % (AUTO) 56.1 %; PLT - PLATELET COUNT 190 10^3/uL (130-450); RED BLOOD COUNT 4.96 10^6/uL (4.20-5.40); RED CELL DISTRIBUTION WIDTH 13.1 % (12.0-15.0); WHITE BLOOD COUNT 6.8 x10^3/uL (4.8-10.8)
[2021-07-13 12:50] LABS: ESTIMATED AVERAGE GLUCOSE 97 mg/dL (70-100)
[2021-07-13 13:36] LABS: ALBUMIN 4.2 g/dL (3.2-5.5); ALBUMIN/GLOBULIN RATIO 1.4 (1.0-2.2); ALKALINE PHOSPHATASE 56 IU/L (42-121); ALT ALANINE AMINOTRANSFERASE 18 IU/L (10-60); AST ASPARTATE AMINOTRANSFERASE 24 IU/L (10-42); BUN - BLOOD UREA NITROGEN 12 mg/dL (6-20); CALCIUM 10.6 mg/dL (8.5-10.3); CARBON DIOXIDE - CO2 28 mmol/L (21-32); CHLORIDE 102 mmol/L (101-111); CHOL/HDL RATIO 5.3 (<4.4); CHOLESTEROL 221 mg/dL; CREATININE 0.7 mg/dL (0.4-1.0); GFR - MDRD 84 (>89); GLUCOSE 95 mg/dL (70-100); HDL CHOLESTEROL 42 mg/dL; LDL CHOLESTEROL,CALCULATED 154 mg/dL; LDL/HDL RATIO 3.7 (<4.4); POTASSIUM 3.7 mmol/L (3.5-5.0); SODIUM 138 mmol/L (135-145); TOTAL PROTEIN 7.3 g/dL (6.7-8.2); TRIGLYCERIDES 125 mg/dL; VLDL CHOLESTEROL 25 mg/dL
== END 2021-07-13 10:26 | disposition home or self-care (01) ==
LOC: LAB.N 10:25
PROVIDERS: ATTEND Nurse Practitioner Family
DX: E78.5 Hyperlipidemia, unspecified (principal); I10 Essential (primary) hypertension; R73.9 Hyperglycemia, unspecified
CPT/HCPCS: 36415; 80053; 80061; 83036; 83721; 84443; 85025

== ENCOUNTER 2022-03-22 11:33 | Outpatient (CLI) | payer OTHER | END 2022-03-22 11:34 | disposition home or self-care (01) | LOC: LAB.N 11:33 | PROVIDERS: ATTEND Family Medicine | DX: E83.52 Hypercalcemia (principal) | CPT/HCPCS: 36415; 81599; 82306; 82330; 83970 ==

== ENCOUNTER 2022-04-08 15:57 | Emergency (ER) | payer MEDICARE, OTHER ==
[2022-04-08 16:18] VITALS: BP 127/102
--- NOTE | 2022-04-08 16:41 | ED Physician Documentation ---
PD HPI LOWER EXT INJURY - Stated complaint Stated Complaint: GLF,LT LEG PX - Chief complaint Chief Complaint: Trauma Ext - History obtained from History obtained from: Patient - Additional information Additional information: She was working on the yard and lost her balance and fell onto her left hip and leg. The hip hurts mildly but she has more pain in the proximal posterior left calf. No other injuries. No head injury. She is able to walk and bear weight. She declines pain medication on initial evaluation. 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 SERVICES: Tubal ligation, Oophrectomy - Present Medications Home Medications: Ambulatory Orders Medication Instructions Recorded Confirmed Lisinopril [Zestril] 10 mg PO DAILY 04/08/22 04/08/22 Risankizumab-Rzaa [Skyrizi Pen] 04/08/22 04/08/22 - Allergies Allergies/Adverse Reactions: Allergies Allergy/AdvReac Type Severity Reaction Status Date / Time No Known Drug Allergies Allergy Verified 04/08/22 16:12 - Social History Does the pt smoke?: No Smoking Status: Never smoker Does the pt drink ETOH?: No Does the pt have substance abuse?: No - Immunizations Immunizations are current?: Yes PD ED PE NORMAL - Vitals Vital signs reviewed: Yes - General General: Alert and oriented X 3, No acute distress - HEENT HEENT: PERRL, EOMI - Neck Neck: Supple, no meningeal sign, No bony TTP - Extremities Extremities: Other (Quite tender to the upper calf, and very painful with plantarflexion of the left foot. Achilles is nontender though. Negative Downs's test. Very mild tenderness over the left lateral hip with painless internal and external rotation there.) - Neuro Neuro: Alert and oriented X 3, Normal speech Results - Vitals Vitals: Vital Signs - 24 hr 04/08/22 16:11 Temperature 36 C L Heart Rate 66 Respiratory 16 Rate Blood Pressure 127/102 H O2 Saturation 100 Oxygen O2 Source Room air - Rads (name of study) X-rays of the left hip and tib-fib are unremarkable Radiology: EMP read contemporaneously PD MEDICAL DECISION MAKING - ED course ED course: She presents after a fall, clinically consistent with gastrocnemius strain or partial tear. No evidence of compartment syndrome. Feeling better after placed in a walking boot. For Vicodin to go. Advised orthopedic follow-up. Departure - Departure Disposition: Home, Self Care Clinical Impression: Muscle tear, Contusion of hip, left Condition: Good Record reviewed to determine appropriate education?: Yes Instructions: Gastrocnemius Muscle Tear Follow-Up: [facility] [Provider Group] Comments: As discussed, it seems likely that you have a partial calf muscle tear. Reasonable to follow-up with orthopedics next week, call Sunday for an appointment. You can walk and bear weight in the boot as tolerated. Return for new or worsening symptoms. If pain is mild you can take Tylenol and/or ibuprofen per package instructions. Discharge Date/Time: 04/08/22 17:43
[2022-04-08] MEDS ORDERED: HYDROcod/ACET 5/325 Prepack 4 PO STA (17:08)
--- NOTE | 2022-04-08 17:10 | XRAY Report ---
PROCEDURE: Tib/Fib LT INDICATIONS: Hip and leg pain after fall TECHNIQUE: 2 views of the tibia and fibula were acquired. COMPARISON: Correlation is made with overlapping portions of the knee plain films, 07/13/2021 FINDINGS: Bones: No fractures or dislocations. No suspicious bony lesions. Age-appropriate degenerative reynoso ges are seen. Soft tissues: No suspicious soft tissue calcifications or masses. IMPRESSION: No acute plain film abnormality is seen. Reviewed by: Peewee Eaton MD on 04/08/2022 4:09 PM [facility] Approved by: Peewee Eaton MD on 04/08/2022 4:09 PM [facility] Station ID: [id number]
--- NOTE | 2022-04-08 17:11 | XRAY Report ---
PROCEDURE: Hip w/Pelvis 2-3V LT INDICATIONS: Hip and leg pain after fall TECHNIQUE: AP pelvis with lateral view(s) of the left hip(s). COMPARISON: 07/19/2017 Correlation is made with the accompanying tibia and fibula plain films, 2021. FINDINGS: Bones: No fractures or dislocations. Pelvic ring appears intact. No suspicious bony lesions. Note is made of age-appropriate degenerative change of the lower lumbar spine. Generalized degenerative changes are seen of both hips, overall mild in degree. Soft tissues: The visualized bowel gas pattern is normal. No suspicious soft tissue calcifications. IMPRESSION: No displaced fractures are seen on this plain film study. In this patient with a given history of trauma, please correlate with focal tenderness. If clinically appropriate, please consider a short-term follow-up plain films series versus a dedicated CT study. Reviewed by: Peewee Eaton MD on 04/08/2022 4:10 PM [place] Approved by: Peewee Eaton MD on 04/08/2022 4:10 PM [facility] Station ID: [id number]
== END 2022-04-08 17:43 | disposition home or self-care (01) ==
LOC: ED 15:57
DX: S70.02XA Contusion of left hip, initial encounter (principal); W18.39XA Other fall on same level, initial encounter; Y93.H2 Activity, gardening and landscaping; Y92.007 Garden or yard of unspecified non-institutional (private) residence as the place of occurrence of the external cause
CPT/HCPCS: 99282; 99283

== ENCOUNTER 2022-06-07 10:41 | Outpatient (CLI) | payer MEDICARE ==
[2022-06-07 18:09] LABS: ALBUMIN 4.3 g/dL (3.2-5.5); ALBUMIN/GLOBULIN RATIO 1.2 (1.0-2.2); BILIRUBIN,TOTAL 0.5 mg/dL (0.2-1.0); CALCIUM 11.1 mg/dL (8.5-10.3); CREATININE 0.7 mg/dL (0.4-1.0); POTASSIUM 4.2 mmol/L (3.5-5.0); TOTAL PROTEIN 7.8 g/dL (6.7-8.2)
== END 2022-06-07 10:42 | disposition home or self-care (01) ==
LOC: LAB.N 10:41
PROVIDERS: ATTEND Family Medicine
DX: I10 Essential (primary) hypertension (principal); E83.52 Hypercalcemia
CPT/HCPCS: 36415; 80053; 83970

== ENCOUNTER 2022-08-16 13:00 | Outpatient (CLI) | payer MEDICARE ==
[2022-08-16 13:51] VITALS: BP 124/78
--- NOTE | 2022-08-16 13:51 | SLEEP CARE CONSULTATION ---
Information from patient questionnaire entered by Kelsea Carvalho. I have reviewed and concur with the information entered by Kelsea Carvalho. This document represents the service I personally performed and the decisions made by me, Cordelia Medellin ARNP. History of Present Illness Service Date and Time: 08/16/2022 1300 Reason for Visit: New patient, Previously diagnosed sleep apnea (has not used CPAP in a year or so), Re-establish care Chief Complaint: reports: Fatigue, Frequent awakenings at night Date of Onset: 2017 Usual bedtime: 10-1130 PM Time it takes to fall asleep: 30MIN-2HRS Snores at night: No (lives alone) Observed to quit breathing while asleep: Yes Number of times waking at night: 1-2 Reasons for waking at night: reports: Pain, Bathroom. denies: Choking, Snoring, Gasping for air Toss, Turn, or Twitch while sleeping: No Recalls having dreams: Yes Usually gets out of bed at: USUALLY 7-9 AM SOMETIMES 4-5 AM Feels refreshed in the morning: Yes Morning headache: Yes (RESOLVES WITHIN 15-45 MIN) Sleepy or fatigued during the day: Yes Ever fallen asleep while driving: No Takes day naps: Yes (2-3 times a week) Dreams during day naps: No Prior sleep studies: Yes Year and Where: [employer] [facility] 2017 Additional HPI information: PAPITO JUNG was previously diagnosed to have moderate, AHI 16.4, obstructive sleep apnea-hypopnea syndrome and comes in today to re-establish care for CPAP therapy. Patient has not been using CPAP therapy for about a year due to recall on her machine. She tells me that she stopped using the CPAP when she heard about the recall but she did not register the machine with [employer]. She is not sure she still needs the CPAP. She has lost about 60 pounds since her last sleep study. - Parasomnia Symptoms Ever been unable to move upon waking from sleep: No Walks in sleep: No Talks in sleep: No Ever acted out dreams in sleep: No Ever felt weak in the knees when startled or emotional: No Bothered by creepy, crawly, restless sensations in legs: Yes Problems with memory or concentration: Yes CPAP Compliance Data - Data Reviewed with Patient Average duration of nightly device use: 40 mins 17 secs Compliance rate %: 0 (02/05/22-05/05/22) Current pressure setting (cmH2O): 7-9 Average residual AHI: 6.3 Compliance data discussion: She was set up to get supplies from [employer] but is not getting any supplies. She has Dreamstation that is on the recall but she has not registered it with [employer] for the recall. She had been using a full face mask, Resmed F20. Subjective Missed days of use due to: reports: other ([employer] recall) Patient concerns: reports: mask discomfort, air blowing in eyes, mask leak noise. 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 Patient is and lives in . Have you smoked in the past 12 months: No Alcohol use: No Caffeine use: Yes Caffeine amount and frequency: 1 CUP COFFEE DAILY Family History Family history of sleep disordered breathing: No Allergies and Home Medications Known drug allergies: Yes (SENSITIVITY TO ASPRIN) Drug allergies reviewed: Yes Home medication list reviewed: Yes Allergy and home medication list: Allergies No Known Drug Allergies Allergy (Verified 08/15/22 13:39) Medications: Skyrizi 1 injection 150 mg/ml every 12 weeks Clobetasol [facility], 0.05%, 2-3 times a week Lisinopril 10 mg daily Voltaren Arthritis Pain Sport Deep Penetrating CBD Recovery 1000 mg Alpine [place], as needed Review of Systems Weight loss over past 5 years: 60 Cardiovascular: reports: high blood pressure, leg or foot swelling Gastrointestinal: denies: heartburn Urinary: reports: incontinence, frequency Neurological: denies: headaches Psychiatric: reports: depression, claustrophobia Ear/Nose/Throat: reports: sinus problems, wisdom teeth removed Endocrine: reports: too hot or cold, increased appetite Musculoskeletal: reports: joint pain, neck pain, back pain, joint swelling, muscle pain or cramping, mobility problems Immunologic: reports: allergies to food or environment Physical Exam Vital signs obtained and entered by: KELSEA Nielsen MA Blood Pressure: 124/78 (LEFT ARM) Cuff size: regular Heart Rate: 72 O2 Saturation: 96 Height: 5 ft 5 in Weight: 193 lb 12.8 oz Body Mass Index: 32.2 BMI Classification: Obese Neck circumference: 14.75 Heart: regular rate and rhythm Lungs: clear bilaterally Impression and Plan 1. Suspected Obstructive Sleep Apnea-Hypopnea Syndrome, as previously diagnosed and as suggested by a history of irregular snoring, frequent awakening during the night and cognitive impairment. She has lost 60 pounds since her last sleep study. She has not used her CPAP machine for at least a year. She feels her symptoms has improved. I recommend proceeding to polysomnography to confirm the diagnosis and to assess severity. If the patient has significant sleep disordered breathing, a manual CPAP titration study will also be performed to find the optimal treatment pressure. I informed the patient of what the sleep studies involve and after some discussion, obtained agreement to proceed. The pathophysiology of obstructive sleep apnea-hypopnea syndrome was discussed with the patient and health risks of cardiovascular and cerebrovascular disease if not treated. 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 Patient agreed to plan. * Schedule polysomnography * Avoid long distance driving or driving when feeling sleepy. * Avoid alcohol, sedative and muscle relaxant around bedtime. * Attempt to lose weight. * Review instructions provided by trained office staff on how to prepare for the sleep study. * Return for follow-up after sleep study completed. Counseling Topics: Weight loss health impact Visit Type: In Office Time Spent with Patient (minutes): 32 Provider Statement: I spent 100% of the Face to Face Visit with the patient with greater than 50% spent counseling the patient and coordination of care.
== END 2022-08-16 13:01 | disposition home or self-care (01) ==
LOC: SC 13:00
PROVIDERS: ATTEND Nurse Practitioner Family
DX: G47.33 Obstructive sleep apnea (adult) (pediatric) (principal); E66.9 Obesity, unspecified; Z68.32 Body mass index [BMI] 32.0-32.9, adult
CPT/HCPCS: 99203; G0463; 99212

== ENCOUNTER 2022-10-05 12:59 | Outpatient (CLI) | payer MEDICARE ==
--- NOTE | 2022-10-05 13:10 | Sleep Patient Instructions ---
Sleep Center Visit Summary - Patient Visit Information Reason for Visit: Sleep study followup - Patient Instructions Additional Instructions: You have improvement of your sleep apnea to a mild obstructive sleep apnea. You have decided to discontinue CPAP therapy at this time. You should continue to try to lose weight to reduce your apneas. Please follow up in the sleep care office if you have an further changes or issues as needed. - Clinic Information Contact: [facility] [address] [place] [id number] [email or web address] T: [phone]
--- NOTE | 2022-10-05 13:33 | SLEEP CARE CONSULTATION ---
Information from patient questionnaire entered by Kelsea Carvalho. I have reviewed and concur with the information entered by Kelsea Carvalho. This document represents the service I personally performed and the decisions made by , Cordelia Medellin ARNP. History of Present Illness Service Date and Time: 10/05/2022 1259 Initial [place] Sleepiness Scale score: 11 (08/16/22) Current [place] Sleepiness Scale score: 12 (10/05/22) Additional HPI information: PAPITO JUNG returns for follow up and results of the recently performed polysomnography. I explained the pathophysiology behind obstructive sleep apnea. We then spent quite a bit of time discussing different treatment options. For mild obstructive sleep apnea, surgery and oral appliance are alternatives to nasal CPAP therapy but in moderate or severe cases, nasal CPAP is the most effective and reliable treatment. I reviewed the impact of weight changes on sleep apnea and strongly recommended losing weight. After some discussion, the patient has opted to discontinue CPAP therapy. Patient does not drink alcohol. Patient was cautioned about risks of drowsy driving until sleepiness symptoms resolve. Patient denies drowsy driving. Sleep Study - Results Type of Sleep Study: Polysomnography (COMPLETED 09/10/22) Prior sleep studies: Yes Year and Where: [employer] 2017 Polysomnography/Home Sleep Study results: IMPRESSION: The quality of the study is good. The patient had slightly reduced sleep efficiency. The sleep architecture was relatively normal considering the first-night effect. Respiratory monitoring showed mild obstructive sleep apnea-hypopnea (AHI = 7.3) associated with oxyhemoglobin desaturation and mild hypoxia (steve oxygen saturation of 83%). The respiratory events occurred mainly during REM sleep. The patient only slept supine during this study (supine AHI = 7.3; non-supine = 0.00). Snore was light in intensity. There was no significant periodic leg movement of sleep. Cardiac rhythm was normal sinus rhythm without significant arrhythmia. No abnormal behavior (parasomnia) observed during the night. Allergies and Home Medications Known drug allergies: Yes (aspirin) Drug allergies reviewed: Yes Home medication list reviewed: Yes (no changes) Allergy and home medication list: Allergies aspirin Adverse Reaction (Verified 10/04/22 09:13) Review of Systems Review of systems same as previous: Yes (no changes) Physical Exam Vital signs obtained and entered by: KELSEA Nielsen MA Blood Pressure: 136/80 (LEFT ARM) Cuff size: regular Heart Rate: 78 O2 Saturation: 96 Height: 5 ft 5 in Weight: 198 lb 6.4 oz Body Mass Index: 33.0 BMI Classification: Obese Impression and Plan 1. Obstructive Sleep Apnea-Hypopnea Syndrome, mild, with lowest oxygen saturation of 83%. Positive pressure therapy could benefit hypertension and depression. Patient has reduced from moderate BRENDA to mild BRENDA with an AHI of 7.3 in her last PSG. Her sleep apnea is mild and the patient does not want to krystal nue with CPAP therapy. She feels the oral appliance would not work for her since she sometimes has jaw joint issues. She cannot sleep on her sides due to her arthritis and she is not interested in any surgical options. I will discontinue her CPAP therapy. She will call for referral if she feels things are worsening or if her weight increases again. She feels she can rest well since losing the weight and will continue to try to lose more weight and further reduce her apneas. 2. Hypoxemia, mild, with a steve oxygen saturation of 83% and 27.6 minutes spent under 90%. Her baseline oxygen saturation was normal with an average oxygen saturation of 91%. She should follow up with PCP for further evaluation as needed. * Discontinue CPAP * Continue to try to lose weight. * Return as needed. Counseling Topics: Weight loss health impact Visit Type: In Office Time Spent with Patient (minutes): 20 Provider Statement: I spent 100% of the Face to Face Visit with the patient with greater than 50% spent counseling the patient and coordination of care.
[2022-10-05 13:34] VITALS: BP 136/80
== END 2022-10-05 13:00 | disposition home or self-care (01) ==
LOC: SC 12:59
PROVIDERS: ATTEND Nurse Practitioner Family
DX: G47.33 Obstructive sleep apnea (adult) (pediatric) (principal); R09.02 Hypoxemia; E66.9 Obesity, unspecified; Z68.33 Body mass index [BMI] 33.0-33.9, adult
CPT/HCPCS: 99213; G0463; 99212

== ENCOUNTER 2022-11-27 07:54 | Outpatient (CLI) | payer MEDICARE ==
[2022-11-27 12:38] LABS: ALBUMIN 4.1 g/dL (3.2-5.5); ALBUMIN/GLOBULIN RATIO 1.2 (1.0-2.2); ALKALINE PHOSPHATASE 68 IU/L (42-121); ALT ALANINE AMINOTRANSFERASE 13 IU/L (10-60); AST ASPARTATE AMINOTRANSFERASE 18 IU/L (10-42); BILIRUBIN,TOTAL 0.7 mg/dL (0.2-1.0); BUN - BLOOD UREA NITROGEN 15 mg/dL (6-20); CALCIUM 10.6 mg/dL (8.5-10.3); CARBON DIOXIDE - CO2 29 mmol/L (21-32); CHLORIDE 105 mmol/L (101-111); CHOL/HDL RATIO 5.8 (<4.4); CHOLESTEROL 254 mg/dL; CREATININE 0.7 mg/dL (0.4-1.0); GFR - MDRD 84 (>89); GLUCOSE 97 mg/dL (70-100); HDL CHOLESTEROL 44 mg/dL; LDL CHOLESTEROL,CALCULATED 186 mg/dL; LDL/HDL RATIO 4.2 (<4.4); POTASSIUM 3.8 mmol/L (3.5-5.0); SODIUM 139 mmol/L (135-145); TOTAL PROTEIN 7.6 g/dL (6.7-8.2); TRIGLYCERIDES 122 mg/dL; VLDL CHOLESTEROL 24 mg/dL
== END 2022-11-27 07:55 | disposition home or self-care (01) ==
LOC: LAB.N 07:54
PROVIDERS: ATTEND Physician Assistant Medical
DX: E78.5 Hyperlipidemia, unspecified (principal)
CPT/HCPCS: 36415; 80053; 80061; 83721

== ENCOUNTER 2022-12-04 14:04 | Outpatient (CLI) | payer MEDICARE ==
--- NOTE | 2022-12-05 09:01 | XRAY Report ---
PROCEDURE: Cervical Spine 2 View INDICATIONS: NECK PAIN,CHRONIC TECHNIQUE: 3 view(s) of the cervical spine were acquired. COMPARISON: None. FINDINGS: Bones: No fractures or dislocations to the C7 level. The lateral masses of C1 appear intact on the odontoid view. No suspicious bony lesions. Mild-moderate multilevel degenerative changes with disc height loss, endplate spurring, and facet arthropathy. Soft tissues: No prevertebral soft tissue swelling. IMPRESSION: Multilevel degenerative changes of the cervical spine. Reviewed by: Guy Crespo MD on 12/05/2022 8:59 AM PDT Approved by: Guy Crespo MD on 12/05/2022 8:59 AM PDT Station ID: [id number]
== END 2022-12-04 14:05 | disposition home or self-care (01) ==
LOC: DI 14:04
PROVIDERS: ATTEND Physician Assistant Medical
DX: M47.812 Spondylosis without myelopathy or radiculopathy, cervical region (principal)

== ENCOUNTER 2023-01-15 12:54 | Outpatient (CLI) | payer MEDICARE ==
--- NOTE | 2023-01-16 11:47 | Mammography Report ---
BILATERAL DIGITAL SCREENING MAMMOGRAM 3D/2D: 01/15/2023 CLINICAL: Routine screening. Comparison is made to exams dated: 06/10/2019 mammogram and 02/04/2018 mammogram - [facility]. There are scattered areas of fibroglandular density in both breasts (category b / 25%-50% glandular t issue). No significant masses, calcifications, or other findings are seen in either breast. There has been no significant interval change. IMPRESSION: NEGATIVE There is no mammographic evidence of malignancy. A 1 year screening mammogram is recommended. Based on the Tyrer Cuzick model (a risk assessment model) the patients lifetime risk is 6.3% and her 10 year risk is 3.1%. According to the ACR, ACS, and NCCN guidelines, an annual breast MRI exam angel g with mammogram is recommended if the patients lifetime risk is 20% or greater. This exam was interpreted at Station ID: [id number]. NOTE: For mammograms, a report in lay terms will be sent to the patient. Approximately 15% of breast malignancies will not be visualized mammographically. In the management of a palpable breast mass, a negative mammogram must not discourage biopsy of a clinically suspicious lesion. Electronically Signed By: Sumeet [email or web address]:01/15/2023 16:14:11 letter sent: No_Letter ACR BI-RADS Category 1: Negative 3341F PARENCHYMAL PATTERN: (A) - The breast(s) demonstrate(s) scattered fibroglandular densities. BI-RADS CATEGORY: (1) - 1 Mammogram [id number] 1 year screening LATERALITY: (B)
== END 2023-01-15 12:55 | disposition home or self-care (01) ==
LOC: DI.N 12:54
DX: Z12.31 Encounter for screening mammogram for malignant neoplasm of breast (principal)

== ENCOUNTER 2023-02-27 12:17 | Outpatient (CLI) | payer MEDICARE ==
[2023-02-27 19:03] LABS: ALBUMIN 4.4 g/dL (3.2-5.5); ALBUMIN/GLOBULIN RATIO 1.7 (1.0-2.2); ALKALINE PHOSPHATASE 77 IU/L (42-121); ALT ALANINE AMINOTRANSFERASE 15 IU/L (10-60); AST ASPARTATE AMINOTRANSFERASE 17 IU/L (10-42); BILIRUBIN,TOTAL 0.7 mg/dL (0.2-1.0); BUN - BLOOD UREA NITROGEN 7 mg/dL (6-20); CALCIUM 10.8 mg/dL (8.5-10.3); CARBON DIOXIDE - CO2 31 mmol/L (21-32); CHLORIDE 107 mmol/L (101-111); CHOL/HDL RATIO 3.1 (<4.4); CHOLESTEROL 159 mg/dL; CREATININE 0.7 mg/dL (0.6-1.3); GFR - MDRD 84 (>89); GLUCOSE 92 mg/dL (74-104); HDL CHOLESTEROL 52 mg/dL; LDL CHOLESTEROL,CALCULATED 76 mg/dL; LDL/HDL RATIO 1.5 (<4.4); POTASSIUM 4.1 mmol/L (3.5-4.5); SODIUM 141 mmol/L (135-145); TRIGLYCERIDES 155 mg/dL (48-352); VLDL CHOLESTEROL 31 mg/dL
== END 2023-02-27 12:18 | disposition home or self-care (01) ==
LOC: LAB.N 12:17
PROVIDERS: ATTEND Physician Assistant Medical
DX: E78.5 Hyperlipidemia, unspecified (principal)
CPT/HCPCS: 36415; 80053; 80061; 83721

== ENCOUNTER 2023-04-18 11:11 | Outpatient (CLI) | payer MEDICARE ==
[2023-04-18 17:56] LABS: BASOPHILS % (AUTO) 0.6 %; EOSINOPHILS # (AUTO) 0.3 10^3/uL (0.0-0.7); EOSINOPHILS % (AUTO) 4.1 %; HCT - HEMATOCRIT 47.9 % (37.0-47.0); HGB - HEMOGLOBIN 15.2 g/dL (12.0-16.0); LYMPHOCYTES # (AUTO) 2.5 10^3/uL (1.5-3.5); LYMPHOCYTES % (AUTO) 38.6 %; MEAN CORPUSCULAR HEMOGLOBIN 30.6 pg (27.0-31.0); MEAN CORPUSCULAR HGB CONC 31.7 g/dL (32.0-36.0); MEAN CORPUSCULAR VOLUME 96.6 fL (81.0-99.0); MEAN PLATELET VOLUME 9.4 fL (7.9-10.8); MONOCYTES # (AUTO) 0.6 10^3/uL (0.0-1.0); MONOCYTES % (AUTO) 9.1 %; PLT - PLATELET COUNT 229 10^3/uL (130-450); RED BLOOD COUNT 4.96 10^6/uL (4.20-5.40); RED CELL DISTRIBUTION WIDTH 13.2 % (12.0-15.0); WHITE BLOOD COUNT 6.3 x10^3/uL (4.8-10.8)
== END 2023-04-18 11:12 | disposition home or self-care (01) ==
LOC: LAB.N 11:11
PROVIDERS: ATTEND Physician Assistant
DX: L40.59 Other psoriatic arthropathy (principal)
CPT/HCPCS: 36415; 81599; 85025; 86480

== ENCOUNTER 2023-07-31 10:55 | Outpatient (CLI) | payer MEDICARE ==
[2023-07-31 18:20] LABS: ALBUMIN 4.5 g/dL (3.2-5.5); ALBUMIN/GLOBULIN RATIO 1.5 (1.0-2.2); ALKALINE PHOSPHATASE 77 IU/L (42-121); ALT ALANINE AMINOTRANSFERASE 12 IU/L (10-60); AST ASPARTATE AMINOTRANSFERASE 16 IU/L (10-42); BILIRUBIN,TOTAL 0.7 mg/dL (0.2-1.0); BUN - BLOOD UREA NITROGEN 16 mg/dL (6-20); CALCIUM 11.2 mg/dL (8.5-10.3); CARBON DIOXIDE - CO2 29 mmol/L (21-32); CHLORIDE 108 mmol/L (101-111); CHOL/HDL RATIO 3.3 (<4.4); CHOLESTEROL 161 mg/dL; CREATININE 0.7 mg/dL (0.6-1.3); GFR - MDRD 84 (>89); GLUCOSE 97 mg/dL (74-104); HDL CHOLESTEROL 49 mg/dL; LDL CHOLESTEROL,CALCULATED 83 mg/dL; LDL/HDL RATIO 1.7 (<4.4); POTASSIUM 3.8 mmol/L (3.5-4.5); SODIUM 141 mmol/L (135-145); TOTAL PROTEIN 7.5 g/dL (6.4-8.9); TRIGLYCERIDES 144 mg/dL (48-352); VLDL CHOLESTEROL 29 mg/dL
== END 2023-07-31 10:56 | disposition home or self-care (01) ==
LOC: LAB.N 10:55
PROVIDERS: ATTEND Physician Assistant Medical
DX: E78.5 Hyperlipidemia, unspecified (principal)
CPT/HCPCS: 36415; 80053; 80061; 83721

== ENCOUNTER 2023-10-01 14:09 | Outpatient (CLI) | payer MEDICARE ==
--- NOTE | 2023-10-02 08:32 | DEXA Report ---
PROCEDURE: Dexa Spine and/or Hip INDICATIONS: POST MENOPAUSAL TECHNIQUE: Dual energy x-ray absorptiometry (DXA) was performed on a [employer] System. Regions measur ed are the AP Spine, femoral neck, and if needed forearm. COMPARISON: None. FINDINGS: Lumbar Spine: Bone Mineral Density: 1.639 g/cm/cm,T score: 3.8. Left Femoral Neck: Bone Mineral Density: 1.046 g/cm/cm, T score: 0.1. Left Hip: Bone Mineral Density: 1.161 g/cm/cm,T score: 1.2. (T score greater or equal to -1.0: NORMAL) (T score from -1.1 to -2.4: OSTEOPENIA) (T score less than or equal to -2.5 to: OSTEOPOROSIS) Impression: By WHO criteria, this patient has normal bone mineral density. Patients with diagnosis of osteoporosis or osteopenia should have regular bone mineral density assess ment. For those eligible for Medicare, routine testing is allowed once every 2 years. Testing frequ ency can be increased for patients who have rapidly progressing disease or for those who are receivin g medical therapy to restore bone mass. Reviewed by: Jen Ware MD on 10/02/2023 8:31 AM PDT Approved by: Jen Ware MD on 10/02/2023 8:31 AM PDT Station ID: [id number]
== END 2023-10-01 14:10 | disposition home or self-care (01) ==
LOC: DI 14:09
PROVIDERS: ATTEND Physician Assistant Medical
DX: Z78.0 Asymptomatic menopausal state (principal)

== ENCOUNTER 2024-02-06 11:50 | Outpatient (CLI) | payer MEDICARE ==
[2024-02-06 18:05] LABS: BASOPHILS # (AUTO) 0.1 10^3/uL (0.0-0.1); BASOPHILS % (AUTO) 0.9 %; EOSINOPHILS # (AUTO) 0.2 10^3/uL (0.0-0.7); EOSINOPHILS % (AUTO) 3.4 %; HCT - HEMATOCRIT 46.2 % (37.0-47.0); HGB - HEMOGLOBIN 15.1 g/dL (12.0-16.0); MEAN CORPUSCULAR HEMOGLOBIN 31.3 pg (27.0-31.0); MEAN CORPUSCULAR HGB CONC 32.7 g/dL (32.0-36.0); MEAN CORPUSCULAR VOLUME 95.9 fL (81.0-99.0); MONOCYTES # (AUTO) 0.6 10^3/uL (0.0-1.0); MONOCYTES % (AUTO) 8.9 %; NEUTROPHILS # (AUTO) 3.9 10^3/uL (1.5-6.6); NEUTROPHILS % (AUTO) 57.7 %; PLT - PLATELET COUNT 197 10^3/uL (130-450); RED BLOOD COUNT 4.82 10^6/uL (4.20-5.40); RED CELL DISTRIBUTION WIDTH 13.2 % (12.0-15.0); WHITE BLOOD COUNT 6.8 x10^3/uL (4.8-10.8)
[2024-02-06 18:21] LABS: ALBUMIN 4.3 g/dL (3.2-5.5); ALBUMIN/GLOBULIN RATIO 1.5 (1.0-2.2); BILIRUBIN,TOTAL 0.7 mg/dL (0.2-1.0); CALCIUM 10.9 mg/dL (8.5-10.3); CREATININE 0.6 mg/dL (0.6-1.3); PHOSPHORUS 2.7 mg/dL (2.5-5.0); POTASSIUM 3.9 mmol/L (3.5-4.5); TOTAL PROTEIN 7.2 g/dL (6.4-8.9)
[2024-02-11 13:10] LABS: A/G RATIO 1.4 (0.7-1.7); ALPHA-1-GLOBULIN 0.2 g/dL (0.0-0.4); ALPHA-2-GLOBULIN 0.6 g/dL (0.4-1.0); GAMMA GLOBULIN 1.1 g/dL (0.4-1.8); GLOBULIN, TOTAL 2.9 g/dL (2.2-3.9); PROTEIN TOTAL 6.9 g/dL (6.0-8.5)
== END 2024-02-06 11:51 | disposition home or self-care (01) ==
LOC: LAB.N 11:50
PROVIDERS: ATTEND Internal Medicine Endocrinology, Diabetes & Metabolism
DX: E83.52 Hypercalcemia (principal); I10 Essential (primary) hypertension
CPT/HCPCS: 36415; 80053; 81599; 82306; 82397; 83970; 84100; 84155; 84165; 85025

== ENCOUNTER 2024-02-08 08:00 | Outpatient (CLI) | payer MEDICARE | END 2024-02-08 23:59 | disposition home or self-care (01) | LOC: LAB.N 08:00 | PROVIDERS: ATTEND Internal Medicine Endocrinology, Diabetes & Metabolism | DX: E83.52 Hypercalcemia (principal) | CPT/HCPCS: 81599; 82340; 82570; 84155; 84165 ==